=== PATIENT | male | born 1990 | race Caucasian/White ===

== ENCOUNTER 2024-09-09 13:44 | Emergency (ER) | payer OTHER, SELFPAY ==
[2024-09-09 13:50] VITALS: BP 140/87
--- NOTE | 2024-09-09 13:50 | ED.GENMED ---
ED Provider Triage
<MONTSE Chambers - Last Filed: 09/09/24 13:53>
-
Patient seen by provider in Triage?: Seen in Triage
Attestation: A medical screening examination has been initiated by a qualified medical provider. Based on the assessment performed at this time, it has been determined that an emergent medical condition may exist and the patient has been informed
that further medical evaluation and possible additional diagnostic testing may be needed.
HPI:
34 yr .old male presents to the ED with left rib pain after sneezing 2 d ago and got worse again after sneezing recently. pt denies shortness of breath. c/o of pain with movement /cough/ deep breath.
GENERAL: Alert , in no apparent distress
EYE: No visual abnormalities.
NECK: Trachea midline
ENT: No visible abnormalities.
LUNGS: No acute respiratory distress, lungs cta. tender to left anterior rib region
NEUROLOGICAL: Alert and oriented
SKIN: Skin intact. No visible changes.
MUSCULOSKELETAL: Moving extremities normally
PSYCH: Normal and appropriate interaction.
This is a medical evaluation conducted in person to initiate diagnostic evaluation and provide initial therapeutics. Please see further documentation by the treating clinician.
History of Present Illness
<MONTSE Chambers - Last Filed: 09/09/24 13:53>
General
Chief Complaint: Back Pain
Time Seen by Provider: 09/09/24 14:53
<Karen Francis PA-C - Last Filed: 09/14/24 02:55>
General
Source: patient
Exam Limitations: none
Nursing documentation reviewed up to this point in time: agreed with
History of Present Illness
History of Present Illness:
pt is a 34 y/o M
here with L back/side pain after sneezing 2 nights ago
pt says he sneezed and felt a pain in his L back but it was like pulled muscles. then was fine yesterday and then in the evening he coughed and had a searing pain in his left side that was lasting several minutes I felt like a really bad charley
horse. Since then he has had some pain with twisting and certain positions, maybe with deep breathing but does not feel short of breath. The pain is in his back and left side along the lower ribs. There is no rash. He has had some sneezing and
allergy symptoms but no fevers or chills, no productivity of his cough, leg swelling, no rash,
Past History
<MONTSE Chambers - Last Filed: 09/09/24 13:53>
Past History
ED Past Medical History: None
Social History
Tobacco: Smoker
Alcohol: Occasional
Personal: Single
Living: with family
Employment: Employed
Review of Systems
<Karen Francis PA-C - Last Filed: 09/14/24 02:55>
Review of Systems
Allergies reviewed?: Yes
All Other Systems: Not applicable
Phy Exam
<Karen Francis PA-C - Last Filed: 09/14/24 02:55>
Physical Exam
Physical Exam:
GENERAL: Alert , in no apparent distress
ENT: o/p clr, mmm. no hemotympanum
CARDIAC: Regular rate and rhythm, no edema
LUNGS: Clear breath sounds bilaterally, no acute respiratory distress, no wheezes/rales/rhonchi
L ribs region posterior back lower ribs mild tenderness
L axillary region lower ribs tender, no brusing, no rash
ABDOMEN: Soft, without focal tenderness, no r/g, no cvat
no LUQ tenderness;
NEUROLOGICAL: Alert and oriented, no focal neuro deficits, CN intact, 5/5 strength, sensation intact
SKIN: Warm and dry,
MUSCULOSKELETAL: No edema, well perfused.
PSYCH: Normal and appropriate interaction.
Course
<MONTSE Chambers - Last Filed: 09/09/24 13:53>
Orders/Labs/Results
Orders:
Orders
09/09/24 13:53
Ribs, Left 3 View W/PA Chest CR [CR Ribs-left 3 Vw W/pa Chest] Urgent
Comment:
Reason For Exam: trauma
09/09/24 15:30
Electrocardiogram (*1) Urgent
Reason for Study: Chest Pain
EKG- Treatment ONCE
Vital Signs
Initial and Last Documented VS:
Initial Vital Signs
Temp Pulse Resp BP Pulse Ox
98.2 F 88 16 140/87 98
09/09/24 13:50 09/09/24 13:50 09/09/24 13:50 09/09/24 13:50 09/09/24 13:50
Last Documented Vital Signs
Temp Pulse Resp BP Pulse Ox
98.2 F 71 18 132/90 98
09/09/24 13:50 09/09/24 16:35 09/09/24 16:35 09/09/24 16:35 09/09/24 16:35
<Karen Francis PA-C - Last Filed: 09/14/24 02:55>
Orders/Labs/Results
Orders:
Orders
09/09/24 13:53
Ribs, Left 3 View W/PA Chest CR [CR Ribs-left 3 Vw W/pa Chest] Urgent
Comment:
Reason For Exam: trauma
09/09/24 15:30
Electrocardiogram (*1) Urgent
Reason for Study: Chest Pain
EKG- Treatment ONCE
Vital Signs
Initial and Last Documented VS:
Initial Vital Signs
Temp Pulse Resp BP Pulse Ox
98.2 F 88 16 140/87 98
09/09/24 13:50 09/09/24 13:50 09/09/24 13:50 09/09/24 13:50 09/09/24 13:50
Last Documented Vital Signs
Temp Pulse Resp BP Pulse Ox
98.2 F 71 18 132/90 98
09/09/24 13:50 09/09/24 16:35 09/09/24 16:35 09/09/24 16:35 09/09/24 16:35
<Karen Francis PA-C - Last Filed: 09/14/24 02:55>
MDM/Problems Addressed
Differential Diagnosis Includes:
rib strain, rib fx, muscle strain
MDM/Problems Addressed:
34 y/o M h/o anxiety
here with L lower rib/back pain after sneeezing 2 days ago
then was ok and today he coughed and had a significant pain lasting 10 minutes before easing up
no sob
no rash
no urinary sypmtoms
well appearing
moving in the stretcher easily but does have pain with twisting
PERC neg
ekg no st elevation/depressiohn/tachycardia
cxr indep reviewed, neg for fx or PTX
suspect MSK pain, rib strain or pulled muscles
deep breaths, motrin
<Karen Francis PA-C - Last Filed: 09/14/24 02:55>
*Critical Care Note
Total Time (30-74mins, 75-104mins- exclusive of procedures): Not Applicable
ED Attending Note
<MONTSE Chambers - Last Filed: 09/09/24 13:53>
-
Portions of this chart may have been created with voice recognition software.� Occasional wrong word or��sound alike� substitutions may have occurred due to the inherent limitations of voice recognition software.
Discharge Plan
Departure
Patient Disposition: Home (Routine Discharge)
Date of Disposition: 09/09/24
Time of Disposition: 15:40
Patient with high blood pressure during this ER visit?: No
Condition: Fair
Covid-19: Not Applicable
Discharge Problem:
Muscle strain
Instructions: Muscle and bone pain - Discharge instructions
Prescriptions:
New
ibuprofen 800 mg tablet
800 mg PO Q8H PRN (Reason: Pain) Qty: 15 0RF
lidocaine 5 % adhesive patch,medicated
1 patch topical DAILY PRN (Reason: pain) Qty: 15 0RF
Referrals:
NONE,* [Family Provider] -
Activity Restrictions/Additional Instructions:
YOUR SYMPTOMS ARE LIKELY MUSCULAR
YOU COULD HAVE PULLED MUSCLES IN YOUR BACK OR PINCHED A NERVE IN BETWEEN YOUR RIBS; YOU CAN ALSO STRAIN THE RIB OR HAVE A SMALL FRACTURE WE CANNOT SEE
THE TREATMENT IS ALL THE SAME - WHICH IS MOTRIN 800 MG 1 TAB EVERY 8 HOURS FOR 3-5 DAYS WITH FOOD
TYLENOL EVERY 6 HOURS NEEDED
LIDOCAINE PATCH 12 HOURS OFF AND ON NEEDED
FOLLOW UP WITH YOUR DOCTOR
RETURN FOR: TROUBLE BREATHING, RASH, FEVER, WORSE PAIN, OR ANY CONCERNS.
Interventions
Interventions:
*Risk Screen - Suicide Last Done: 09/09/24 13:50
*General Assessment Last Done: 09/09/24 16:34
*Neglect/Abuse Screening Last Done: 09/09/24 13:50
*ED COVID-19 Vaccine History Last Done: 09/09/24 16:34
*Nursing Disposition Last Done: 09/09/24 16:35
ED-Musculoskeletal Assessment Last Done: 09/09/24 16:34
Discharge Date and Time
Discharge Date/Time: 09/09/24 16:36
Print Language: [id number]
[2024-09-09 16:35] VITALS: BP 132/90
== END 2024-09-09 16:36 | disposition home or self-care (01) ==
LOC: EMR 13:44
PROVIDERS: EMERGENCY PHYSICIAN Emergency Medicine
DX: S39.012A Strain of muscle, fascia and tendon of lower back, initial encounter (principal); X58.XXXA Exposure to other specified factors, initial encounter; F17.200 Nicotine dependence, unspecified, uncomplicated
CPT/HCPCS: 99284; 71101; 93005